=== PATIENT | male | born 1975 | race Caucasian/White ===

== ENCOUNTER 2025-02-26 11:51 | Emergency (ER) | payer OTHER, SELFPAY ==
[2025-02-26 11:58] VITALS: BP 157/92; PULSE 90; RESP 18; TEMP 37.2; O2SAT 98; BMI 28.6
--- NOTE | 2025-02-26 12:06 | DI.RAD.S_ITS ---
PROCEDURE: XR CHEST 2V INDICATIONS: Chest Pain TECHNIQUE: 2 views of the chest were acquired. COMPARISON: None. FINDINGS: Surgical changes and devices: None. Lungs and pleura: Lungs are clear. No pleural effusions or pneumothorax. Mediastinum: Mediastinal contours are normal. Heart size is normal. Bones and chest wall: No suspicious bony abnormalities. Soft tissues appear unremarkable. IMPRESSION: No acute cardiopulmonary pathology. Dictated by: Radu Colindres M.D. on 02/26/2025 at 12:35 Approved by: Radu Colindres M.D. on 02/26/2025 at 12:36
--- NOTE | 2025-02-26 12:06 | EKG_ITS ---
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
--- NOTE | 2025-02-26 12:08 | ED_ITS ---
HPI - General Adult General Chief complaint: Hypertension Stated complaint: [facility] ref, High blood pressure Time Seen by Provider: 02/26/25 12:08 Source: patient Mode of arrival: Ambulatory History of Present Illness HPI narrative: 49-year-old male with past medical history hypothyroidism, hypertension presents to the ED with 1 day of headache, tiredness in his legs which he describes as ?like I climb the mountain ?. Patient is also endorsing intermittent chest pounding, pain, elevated blood pressure. Patient takes losartan and levothyroxine, patient endorses compliance. No fever, chills, shortness of breath, nausea, vomiting, abdominal pain, dysuria, lightheadedness, dizziness, syncope. No trauma, exertion to explain the leg pain. Patient was seen earlier today at a walk-in clinic, registered a blood pressure of 184/125, was sent to the ED for further evaluation. Related Data Home Medications ?Medication ?Instructions ?Recorded ?Confirmed levothyroxine 50 mcg tablet 50 mcg PO DAILY 02/26/25 1 04/28/24 losartan 100 mg tablet 100 mg PO DAILY 02/26/2503/12 Allergies Allergy/AdvReac Type Severity Reaction Status Date / Time No Known Drug Allergies Allergy Unverified 02/26/25 11:51 Review of Systems Constitutional Constitutional: Denies chills, Denies fatigue, Denies fever(s), Denies frequent falls, Reports headache(s), Denies lethargy and Denies weakness Eyes Eyes: Denies change in vision, Denies eye discharge, Denies irritation and Denies loss of vision ENT Ears, Nose, Mouth, and Throat: Denies change in voice, Denies dizziness, Reports headache(s), Denies neck pain, Denies sore throat and Denies throat swelling Cardiovascular Cardiovascular: Reports chest pain, Denies irregular heart rhythm, Denies lightheadedness, Denies palpitations, Denies dyspnea, Denies dyspnea on exertion and Denies orthopnea Comments: palpitations Respiratory Respiratory: Denies cough, Denies dyspnea, Denies dyspnea on exertion and Denies wheezing Gastrointestinal Gastrointestinal: Denies abdominal pain, Denies change in bowel habits, Denies diarrhea, Denies nausea and Denies vomiting Musculoskeletal Musculoskeletal: Denies neck pain and Denies numbness Comments: Bilateral thigh pain Integumentary/Breasts Skin/Breast: Denies pruritus, Denies erythema, Denies rash and Denies wounds Neurologic Neurologic: Denies behavioral changes, Denies confusion, Denies dizziness, Denies frequent falls, Reports headache(s), Denies loss of vision, Denies numbness and Denies weakness Psychiatric Psychiatric: Denies anxiety, Denies behavioral changes, Denies confusion, Denies depression, Denies homicidal ideation and Denies suicidal ideation Endocrine Endocrine: Denies fatigue, Denies flushing and Denies palpitations Hematologic/Lymphatic Hematologic/Lymphatic: Denies easy bruising Allergic/Immunologic Allergic/Immunologic: Denies urticaria, Denies throat swelling and Denies wheezing Patient History Social History Smoking Status: Current every day smoker Smoking Status: Current every day smoker tobacco type: cigarettes Exam Narrative Exam Narrative: Const General:?cooperative, healthy appearing and comfortable [facility] Head:?normal to inspection Ears:?hearing grossly normal bilaterally Nose:?external nose normal Face and sinus:?normal facial exam and sinuses nontender Mouth:?oral mucosae normal Throat:?posterior oropharynx normal Eyes General:?appearance normal, both eyes and all related structures Neck Neck:?normal visual inspection and no lymphadenopathy noted Resp Effort & Inspection:?normal respiratory effort Auscultation:?clear to auscultation bilaterally Cardio Rate:?regular rate Rhythm:?regular rhythm Neuro General:?patient alert, patient awake and patient oriented x3 Initial Vital Signs Initial Vital Signs: Vital Signs Temperature 99.0 F 02/26/25 11:58 Pulse Rate 90 02/26/25 11:58 Respiratory Rate 18 02/26/25 11:58 Blood Pressure 157/92 H 02/26/25 11:58 Pulse Oximetry 98 02/26/25 11:58 Oxygen Delivery Method Room Air 02/26/25 11:58 Course Orders Ordered: ED Orders 02/26/25 12:06 XR chest 2V Stat EKG-12 Lead Stat 02/26/25 12:15 Complete Blood Count AUTO DIFF Stat Comprehensive Metabolic Panel Stat Lipase Stat Magnesium Stat NT-proBNP (BNP-Adult 18+) Stat PTT Partial Thromboplastin Sebastian Stat Prothrombin Time INR Stat TSH w/ Reflex to FT4 Stat Troponin & CK Cardiac Panel Stat Discontinued Medications Acetaminophen (Ofirmev) 1,000 mg in 100 mls @ 400 mls/hr IV NOW ONE Stop: 02/26/25 12:20 Last Infusion: 02/26/25 12:55 Dose: Infused Documented By: Admin: 02/26/25 12:19 Dose: 400 mls/hr Documented By: RAVINDER Ketorolac Tromethamine (Ketorolac 30 Mg/Ml Vial) 15 mg IV NOW ONE Stop: 02/26/25 12:07 Last Admin: 02/26/25 12:19 Dose: 15 mg Documented By: RAVINDER Vital Signs Vital signs: Vital Signs - 8 hr 02/26/25 11:58 02/26/25 12:19 02/26/25 13:33 Temperature 99.0 F 98.6 F Pulse Rate 90 73 Respiratory Rate 18 18 Blood Pressure 157/92 H 150/91 H 142/97 H Pulse Oximetry 98 98 Oxygen Delivery Method Room Air Room Air 02/26/25 16:03 02/26/25 16:28 Temperature Pulse Rate 69 Respiratory Rate 20 Blood Pressure 136/87 149/96 H Pulse Oximetry 98 Oxygen Delivery Method Medical Decision Making Lab Data 02/26/25 12:15 02/26/25 12:15 Labs: Lab Results 02/26/25 Range/Units 12:15 WBC 10.1 (4.5-11.0) X10^3/uL RBC 4.66 (4.5-5.9) X10^6/uL Hgb 15.3 (13.5-17.5) g/dL Hct 44.4 (41-53) % MCV 95.2 (80-100) fL MCH 32.9 (26-34) PG MCHC 34.5 (30-36) % RDW 13.7 (11.6-14.8) % Plt Count 352 (150-400) X10^3/uL Neut % (Auto) 70.2 (50-75) % Lymph % (Auto) 20.7 L (25-40) % [place] % (Auto) 7.2 (3-14) % Eos % (Auto) 0.7 L (2-4) % Baso % (Auto) 1.2 (0-2) % Neut # (Auto) 7100 H (8925-9410) /uL Lymph # (Auto) 2100 (5323-4133) /uL [place] # (Auto) 700 (0-900) /uL Eos # (Auto) 100 (0-450) /uL Baso # (Auto) 100 (0-100) /uL PT 10.1 (9.4-12.5) SECONDS INR 0.9 (0.9-1.3) APTT 30 (25.1-36.5) SECONDS Sodium 139 (137-145) mmol/L Potassium 4.3 (3.4-5.1) mmol/L Chloride 105 (98-107) mmol/L Carbon Dioxide 24 (22-32) mmol/L BUN 17 (9-20) mg/dL Creatinine 1.02 (0.66-1.25) mg/dL Estimated GFR > 60 (>60) mL/min BUN/Creatinine Ratio 16.7 (6-22) Glucose 87 (70-99) mg/dL Calcium 9.8 (8.4-10.2) mg/dL Magnesium 2.3 (1.6-2.3) mg/dL Total Bilirubin 0.7 (0.2-1.3) mg/dL AST 44 (17-59) IU/L ALT 45 (<50) IU/L Alkaline Phosphatase 84 (38-126) U/L Total Creatine Kinase 183 H (55-170) U/L Troponin I < 0.012 (0.01-0.034) ng/mL NT-Pro-B Natriuret Pep 144 H (<125) pg/mL Total Protein 8.2 (6.3-8.2) g/dL Albumin 5.1 H (3.5-5.0) g/dL Globulin 3.1 (1.7-4.1) g/dL Albumin/Globulin Ratio 1.6 (1.0-2.8) Lipase 62 (23-300) U/L TSH 1.88 (0.47-4.68) uIU/mL MDM Narrative Medical decision making narrative: 49-year-old male with past medical history hypothyroidism, hypertension presents to the ED with 1 day of headache, tiredness in his legs which he describes as ?like I climb the mountain ?. Concern for ACS versus musculoskeletal sprain/strain versus primary headache versus electrolyte derangements versus thyroid derangements versus other. Will obtain cardiac workup, TSH with reflex to free T4. Will give Toradol, Tylenol for headache. Will reassess. EKG is normal sinus rhythm with an incomplete right bundle branch block. No acute ST-T changes. Chest x-ray without acute cardiopulmonary findings. Labs within normal limits. Troponin and BNP within normal limits. TSH within normal limits at 1.88. In the ED, patient's blood pressure while elevated, not indicative of hypertensive urgency/emergency. Patient's headache resolved with Toradol, Tylenol. The leg pain has improved, unlikely DVT based on physical exam, history. Recommend patient follow-up with PCP for further evaluation regarding the elevated blood pressure. ED return precautions discussed with patient. Patient verbalized understanding. Medical records reviewed: Yes Discharge Plan Departure Patient Disposition: Home Clinical Impression: Elevated blood pressure reading Instructions: Essential Hypertension Activity Restrictions/Additional Instructions: You were evaluated in the emergency department today for a headache, elevated blood pressure reading, thigh pain. Your blood pressure is somewhat elevated, however not high enough to require any intervention in the emergency department today. Your headache responded well to the medication. Your labs and workup were normal. Your thyroid was normal as well. Please follow-up with your PCP as soon as possible for further evaluation regarding the elevated blood pressure. Return to the ED if you have worsening symptoms, chest pain, shortness of breath. Prescriptions: No Action levothyroxine 50 mcg tablet 50 mcg PO DAILY losartan 100 mg tablet 100 mg PO DAILY Referrals: Miscellaneous,DoctorMD [Primary Care Provider, Medical] Stand Alone Forms: Patient Portal/API
[2025-02-26 12:19] VITALS: BP 150/91
[2025-02-26] MEDS: ACETAMINOPHEN IV 1,000 MG/100 ML VIAL 400 MG IV (12:19)
[2025-02-26] MEDS: KETOROLAC 30 MG/ML VIAL 15 MG IV (12:19)
[2025-02-26 12:25] LABS: Add Manual Diff / Slide Review NO; Hematocrit 44.4 % (41-53); Hemoglobin 15.3 g/dL (13.5-17.5); Lymphocytes Absolute Auto 2100 /uL (1100-4500); Mean Corpuscular HGB Conc 34.5 % (30-36); Mean Corpuscular Hemoglobin 32.9 PG (26-34); Mean Corpuscular Volume 95.2 fL (80-100); Platelet Count 352 X10^3/uL (150-400)
[2025-02-26 12:41] LABS: INR 0.9 (0.9-1.3); Prothrombin Time 10.1 SECONDS (9.4-12.5)
[2025-02-26 12:43] LABS: PTT Partial Thromboplastin Tim 30 SECONDS (25.1-36.5)
[2025-02-26 12:52] LABS: Alanine Aminotransferase 45 IU/L (<50); Albumin 5.1 g/dL (3.5-5.0); Albumin Globulin Ratio 1.6 (1.0-2.8); Alkaline Phosphatase 84 U/L (38-126); Blood Urea Nitrogen 17 mg/dL (9-20); Calcium 9.8 mg/dL (8.4-10.2); Carbon Dioxide 24 mmol/L (22-32); Chloride 105 mmol/L (98-107); Estimated Glomerular Filt Rate > 60 mL/min (>60); Globulin 3.1 g/dL (1.7-4.1); Glucose 87 mg/dL (70-99); HEMOLYSIS 16 (0-50); Lipase 62 U/L (23-300); Magnesium 2.3 mg/dL (1.6-2.3); Potassium 4.3 mmol/L (3.4-5.1); Sodium 139 mmol/L (137-145); Total Protein 8.2 g/dL (6.3-8.2)
[2025-02-26 13:01] LABS: NT-proBNP (BNP-Adult 18+) 144 pg/mL (<125)
[2025-02-26 13:21] LABS: Creatine Kinase 183 U/L (55-170)
[2025-02-26 13:22] LABS: TSH w/ Reflex to FT4 1.88 uIU/mL (0.47-4.68)
[2025-02-26 13:33] VITALS: BP 142/97; PULSE 73; RESP 18; TEMP 37; O2SAT 98
[2025-02-26 13:34] LABS: Troponin I < 0.012 ng/mL (0.01-0.034)
[2025-02-26 16:03] VITALS: BP 136/87
[2025-02-26 16:28] VITALS: BP 149/96; PULSE 69; RESP 20; O2SAT 98
== END 2025-02-26 16:36 | disposition home or self-care (01) ==
PROVIDERS: Emergency Provider Student in an Organized Health Care Education/Training Program
DX: I10 Essential (primary) hypertension (principal)
CPT/HCPCS: 36415; 71046; 80053; 82550; 83690; 83735; 83880; 84443; 84484; 85025; 85610; 85730; 93005; 96365; 96375; 99284; J0131; J1885